=== PATIENT | male | born 1995 | race Caucasian/White ===

== ENCOUNTER 2016-11-18 14:57 | Emergency (ER) | payer BC ==
[~2016-11-18] VITALS: Ht 182.9 cm; Wt 66.0 kg
[2016-11-18 15:00] VITALS: BP 139/90; PULSE 90; RESP 22; TEMP 97.3; O2SAT 99
--- NOTE | 2016-11-18 15:04 | PD ---
Physical Exam Time Seen by Provider: 15:03 Narrative 20 y/o male presents with 2 days of epigastric abdominal pain, nausea and vomiting for 2 days. Vital signs reviewed. Seen at triage desk. Awaiting bed placement. Data Data Last Documented VS Vital Signs Date Time Temp Pulse Resp B/P Pulse Ox O2 Delivery O2 Flow Rate FiO2 11/18/16 15:00 97.3 90 22 139/90 99 MDM Medical Record Reviewed: Yes Supervised Visit with DAMIEN: Riki Iraheta November 18, 2016 15:04
[2016-11-18] MEDS ORDERED: SODIUM CHLOR 0.9% 1000 ML INJ 1,000 ML IV SCH (16:42)
[2016-11-18] MEDS ORDERED: CLOR15TA PO (16:44)
[2016-11-18] MEDS ORDERED: VITA100064 PO (16:44)
[2016-11-18] MEDS ORDERED: ONDANSETRON HCL 4 MG/2 ML VIAL IVP ONE (16:45)
[2016-11-18] MEDS ORDERED: SODIUM CHLORIDE 0.9% FLUSH 10 ML FLUSH IV FLUSH PRN (16:45)
[2016-11-18] MEDS ORDERED: MORPHINE SULFATE 4 MG/ML INJ IV PUSH ONE (16:45)
[2016-11-18 16:50] VITALS: BP 123/65; PULSE 72; RESP 17; O2SAT 100
[2016-11-18 17:07] LABS: AUTOMATED NEUTROPHIL # 3.4 TH/MM3 (1.8-7.7); BASOPHIL % 0.4 % (0.0-2.0); HEMATOCRIT 44.3 % (39.0-51.0); HEMO FLAGS DIFF FINAL; LYMPH % 19.5 % (9.0-44.0); LYMPHOCYTE # 0.9 TH/MM3 (1.0-4.8); MEAN CORPUSCULAR HEMOGLOBIN 31.6 PG (27.0-34.0); MEAN CORPUSCULAR HGB CONC 34.4 % (32.0-36.0); MONO % 8.7 % (0.0-8.0); NEUT % 70.4 % (16.0-70.0); PLATELET COUNT 202 TH/MM3 (150-450); RED BLOOD COUNT 4.82 MIL/MM3 (4.50-5.90); RED CELL DISTRIBUTION WIDTH 14.4 % (11.6-17.2); WHITE BLOOD COUNT 4.8 TH/MM3 (4.0-11.0)
[2016-11-18 17:19] LABS: BLOOD, URINE NEG (NEG); COMMENT (UR) CULT NOT INDICATED; CULTURE IF INDICATED CULT NOT INDICATED; GLUCOSE,URINE NEG (NEG); HYALINE CAST, URINE 1 /lpf (RARE); KETONE, URINE NEG (NEG); MUCUS URINE FEW /lpf (OCC); NITRITE,URINE NEG (NEG); URINE COLOR LIGHT-YELLOW (YELLW/STRAW)
[2016-11-18 17:26] LABS: AMPHETAMINE, URINE NEG (NEG); BARBITURATES, URINE NEG (NEG); COCAINE, URINE NEG (NEG)
[2016-11-18 17:26] LABS: ALT (GPT) 26 U/L (9-52); ANION GAP 8 MEQ/L (5-15); AST (GOT) 31 U/L (15-39); BICARBONATE 27.5 MEQ/L (21.0-32.0); BLOOD UREA NITROGEN 9 MG/DL (7-18); CHLORIDE 104 MEQ/L (98-107); GLOMERULAR FILTRATION RATE 105 ML/MIN (>89); POTASSIUM 4.1 MEQ/L (3.5-5.1); SODIUM (NA) 139 MEQ/L (136-145)
[2016-11-18 17:28] LABS: ALKALINE PHOSPHATASE 72 U/L (45-117); TOTAL BILIRUBIN ADULT 0.5 MG/DL (0.2-1.0)
[2016-11-18 17:34] LABS: PROTHROMBIN TIME - PATIENT 11.4 SEC (9.8-11.6)
[2016-11-18] MEDS ORDERED: IOHEXOL 350 MG/ML 10 ML VIAL (for RAD DIAG) IV ONE (17:52)
[2016-11-18 18:05] VITALS: BP 120/62; PULSE 76; RESP 17; O2SAT 99
[2016-11-18 18:08] VITALS: RESP 17
--- NOTE | 2016-11-18 18:23 | RADRPT ---
EXAM DATE/TIME: 11/18/2016 17:47 [place] COMPARISON: No previous studies available for comparison. INDICATIONS : Abdomen pain. IV CONTRAST: 100 cc Omnipaque 350 (iohexol) IV ORAL CONTRAST: No oral contrast ingested. RADIATION DOSE: 9.96 CTDIvol (mGy) MEDICAL HISTORY : Cardiovascular disease. Gilbert syndrome. SURGICAL HISTORY : None. ENCOUNTER: Initial ACUITY: 1 day PAIN SCALE: 5/10 LOCATION: Bilateral abdomen. TECHNIQUE: Volumetric scanning of the abdomen and pelvis was performed. Using automated exposure control and ad justment of the mA and/or kV according to patient size, radiation dose was kept as low as reasonably achievable to obtain optimal diagnostic quality images. FINDINGS: Lung bases are clear. No acute findings in the liver, spleen, adrenals or pancreas. There is a nonobs tructing approximately 4 mm calculus in the lower pole left kidney. Small cyst upper pole right kidne y. No free fluid. No bowel obstruction. No adenopathy. Mild constipation. There is hypertrophic bony ari nge at the left ischial tuberosity probably from a remote avulsion injury. CONCLUSION: 1. No acute findings within the abdomen and pelvis. Nonobstructing 4 mm calculus lower pole left kidn ey. Remote avulsion injury left ischial tuberosity. Federico Arreola MD on November 18, 2016 at 18:15 Board Certified Radiologist. This report was verified electronically.
--- NOTE | 2016-11-18 18:55 | PD ---
HPI Chief Complaint: Abdominal Pain Time Seen by Provider: 16:35 Travel History International Travel<30 days: No Contact w/Intl Traveler<30days: No Traveled to known affect area: No History of Present Illness HPI 20-year-old male with history of Gilbert syndrome presents to the ED for evaluation of 2 day history of 10/10 epigastric pain, nausea and vomiting. Patient denies fever, chills, changes in bowel habits, back pain, dysuria. He states that he is prescribed an antianxiety medication but has run out and so has been drinking heavily for the past few days. He endorses anorexia secondary to pain. He is unable to estimate the number of episodes of NBNB vomiting. PFSH Past Medical History Anxiety: Yes Depression: Yes Cardiovascular Problems: Yes Diminished Hearing: No Medical other: Yes (Gilbert Syndrome ) Seizures: Yes Tetanus Vaccination: Unknown Influenza Vaccination: No ?: Not Social History Alcohol Use: Yes (daily ) Tobacco Use: No Substance Use: Yes (marijuana) Allergies-Medications (Allergen,Severity, Reaction): Uncoded Allergies: ANTIDEPRESSANTS (Allergy, Severe, 11/18/16) "BAD REACTION" Reported Meds & Prescriptions Reported Meds & Active Scripts Active Zofran Odt (Ondansetron Odt) 4 Mg Tab 4 Mg SL Q8HR PRN Reported Clorazepate (Clorazepate Dipotassium) 15 Mg Tab 15 Mg PO DAILY PRN Vitamin D (Cholecalciferol) 1,000 Unit Tab 1,000 Units PO DAILY Review of Systems Except as stated in HPI: all other systems reviewed are Neg Physical Exam Narrative GENERAL: Well-nourished, well-developed thin white male in no acute distress.. SKIN: Focused skin assessment warm/dry. HEAD: Normocephalic. EYES: No scleral icterus. No injection or drainage. NECK: Supple, trachea midline. No JVD or lymphadenopathy. CARDIOVASCULAR: Regular rate and rhythm without murmurs, gallops, or rubs. 2+ DP and radial pulses bilaterally. RESPIRATORY: Breath sounds clear and equal bilaterally. No accessory muscle use. GASTROINTESTINAL: Abdomen soft, nondistended. Tender to palpation in the bilateral upper quadrants and epigastric area. MUSCULOSKELETAL: No cyanosis, or edema. Patient is ambulatory and moves extremities spontaneously. BACK: Nontender without obvious deformity. No CVA tenderness. Data Data Last Documented VS Vital Signs Date Time Temp Pulse Resp B/P Pulse Ox O2 Delivery O2 Flow Rate FiO2 11/18/16 18:08 17 11/18/16 18:05 76 120/62 99 11/18/16 16:50 Room Air 11/18/16 15:00 97.3 Orders Complete Blood Count With Diff (11/18/16 16:42) Comprehensive Metabolic Panel (11/18/16 16:42) Lipase (11/18/16 16:42) Lactic Acid (11/18/16 16:42) Prothrombin Time / Inr (Pt) (11/18/16 16:42) Act Partial Throm Time (Ptt) (11/18/16 16:42) Urinalysis - C+S If Indicated (11/18/16 16:42) Ct Abd/Pel W Iv Contrast(Rout) (11/18/16 16:42) Iv Access Insert/Monitor (11/18/16 16:42) Ecg Monitoring (11/18/16 16:42) Oximetry (11/18/16 16:42) NPO (11/18/16 16:42) Morphine Inj (Morphine Inj) (11/18/16 16:45) Ondansetron Inj (Zofran Inj) (11/18/16 16:45) Sodium Chlor 0.9% 1000 Ml Inj (Ns 1000 M (11/18/16 16:42) Sodium Chloride 0.9% Flush (Ns Flush) (11/18/16 16:45) Electrocardiogram (11/18/16 16:42) Drug Screen, Random Urine (11/18/16 16:42) Alcohol (Ethanol) (11/18/16 16:42) Iohexol 350 Inj (Omnipaque 350 Inj) (11/18/16 17:52) Labs Laboratory Tests Test 11/18/16 11/18/16 16:56 16:57 White Blood Count 4.8 TH/MM3 Red Blood Count 4.82 MIL/MM3 Hemoglobin 15.2 GM/DL Hematocrit 44.3 % Mean Corpuscular Volume 92.0 FL Mean Corpuscular Hemoglobin 31.6 PG Mean Corpuscular Hemoglobin 34.4 % Concent Red Cell Distribution Width 14.4 % Platelet Count 202 TH/MM3 Mean Platelet Volume 7.5 FL Neutrophils (%) (Auto) 70.4 % Lymphocytes (%) (Auto) 19.5 % Monocytes (%) (Auto) 8.7 % Eosinophils (%) (Auto) 1.0 % Basophils (%) (Auto) 0.4 % Neutrophils # (Auto) 3.4 TH/MM3 Lymphocytes # (Auto) 0.9 TH/MM3 Monocytes # (Auto) 0.4 TH/MM3 Eosinophils # (Auto) 0.0 TH/MM3 Basophils # (Auto) 0.0 TH/MM3 CBC Comment DIFF FINAL Differential Comment Prothrombin Time 11.4 SEC Prothromb Time International 1.0 RATIO Ratio Activated Partial 27.0 SEC Thromboplast Time Sodium Level 139 MEQ/L Potassium Level 4.1 MEQ/L Chloride Level 104 MEQ/L Carbon Dioxide Level 27.5 MEQ/L Anion Gap 8 MEQ/L Blood Urea Nitrogen 9 MG/DL Creatinine 0.93 MG/DL Estimat Glomerular Filtration 105 ML/MIN Rate Random Glucose 75 MG/DL Calcium Level 9.7 MG/DL Total Bilirubin 0.5 MG/DL Aspartate Amino Transf 31 U/L (AST/SGOT) Alanine Aminotransferase 26 U/L (ALT/SGPT) Alkaline Phosphatase 72 U/L Total Protein 8.2 GM/DL Albumin 4.6 GM/DL Lipase 115 U/L Ethyl Alcohol Level 6 MG/DL Urine Color LIGHT-YELLOW Urine Turbidity CLEAR Urine pH 7.0 Urine Specific [place] 1.010 Urine Protein NEG mg/dL Urine Glucose (UA) NEG mg/dL Urine Ketones NEG mg/dL Urine Occult Blood NEG Urine Nitrite NEG Urine Bilirubin NEG Urine Urobilinogen LESS THAN 2.0 MG/DL Urine Leukocyte Esterase NEG Urine RBC 1 /hpf Urine WBC 1 /hpf Urine Hyaline Casts 1 /lpf Urine Mucus FEW /lpf Microscopic Urinalysis Comment CULT NOT INDICATED Lactic Acid Level 1.4 mmol/L Urine Opiates Screen NEG Urine Barbiturates Screen NEG Urine Amphetamines Screen NEG Urine Benzodiazepines Screen POS Urine Cocaine Screen NEG Urine Cannabinoids Screen POS MDM Medical Decision Making Medical Screen Exam Complete: Yes Emergency Medical Condition: Yes Differential Diagnosis Pancreatitis versus gastritis versus cholecystitis versus alcohol withdrawal versus other Narrative Course 20-year-old male with history of Gilbert syndrome presents to the ED for evaluation of 2 day history of 10/10 epigastric pain, nausea and vomiting. Patient denies fever, chills, changes in bowel habits, back pain, dysuria. He states that he is prescribed an antianxiety medication but has run out and so has been drinking heavily for the past few days. Last drink this morning. He endorses anorexia secondary to pain. He is unable to estimate the number of episodes of NBNB vomiting. I was reviewed. Physical exam reveals a thin white male in no acute distress. There is tenderness to palpation of the bilateral upper abdominal quadrants for the physical exam is otherwise unremarkable. IV was established. Patient was placed on continuous monitoring. He was administered a liter of normal saline, 4 mg morphine and 4 mg Zofran IV. CBC: WBC 4.8, hemoglobin 15.2. Coag: INR 1.0. CMP: Unremarkable. Lactic acid: 1.4. Lipase: 1:15. UA: No culture indicated. Tox screen: Positive for benzodiazepines and cannabinoids. Alcohol: Less than 6. CT: No acute findings of the abdomen or pelvis Nonobstructing 4 mm calculus in the lower pole of the left kidney. Remote avulsion injury to the left ischial tuberosity per radiology read. EKG: Rate 61, sinus rhythm.KS interval 145, QRS 95, QTc 388. Normal axis. No ST changes. Reviewed by Dr. Poole The patient is actually taking clorazepate which is to treat alcohol withdrawal. He has completed the prescription that was provided to him. I discussed the results of the workup with the patient. I suspect that his pain is secondary to his multiple episodes of vomiting which I believe is likely due to his heavy alcohol use. Vitals are all within normal limits and no evidence of withdrawal in the ED. He was provided with a prescription for a few doses of Zofran. He is instructed to follow-up with his primary care provider and [facility] for outpatient treatment of his alcohol misuse. We discussed reasons to return to the ED. He indicated understanding of instructions and is agreeable to the care plan. He is stable and discharged home. Diagnosis Primary Impression: Alcohol abuse Additional Impressions: Abdominal pain Qualified Code: R10.10 - Pain of upper abdomen Nausea and vomiting Qualified Code: R11.2 - Non-intractable vomiting with nausea, unspecified vomiting type Referrals: [facility] (Out patient) Primary Care Physician Patient Instructions: Abdominal Pain (ED), Acute Nausea and Vomiting (ED), Diet for Ulcers and Gastritis (ED), General Instructions Additional Instructions: Rest, hydrate. Take Zofran as prescribed for continued nausea and vomiting. Follow-up with your primary care provider for further evaluation. Seek outpatient treatment for your alcohol misuse from [facility]. Return to the ED for worsening of symptoms or any urgent or emergent medical condition. Med/Other Pt SpecificInfo: Prescription(s) given Scripts Ondansetron Odt (Zofran Odt)4 Mg Tab4 Mg SL Q8HR PRN (Nausea/Vomiting) #7 TAB Ref 0 Prov:Alina Poole MD 11/18/16 Disposition: 01 DISCHARGE HOME Condition: Stable Yee Jaime November 18, 2016 18:55
[2016-11-18] MEDS ORDERED: ZOFR4TAB3 SL (18:56)
--- NOTE | 2016-11-19 10:57 | EKG ---
Date Performed: 11/18/2016 Time Performed: 17:35:28 PTAGE: 20 years EKG: Sinus rhythm WITH SINUS ARRHYTHMIA BORDERLINE RIGHT AXIS DEVIATION BORDERLINE ECG NO PREVIOUS TRACING DOCTOR: Justin Cavazos Interpretating Date/Time 11/19/2016 10:55:56
== END 2016-11-18 19:22 | disposition home or self-care (01) ==
LOC: NEPD 14:57
DX: F10.10 Alcohol abuse, uncomplicated (principal); R10.13 Epigastric pain; R11.2 Nausea with vomiting, unspecified; Y90.0 Blood alcohol level of less than 20 mg/100 ml
CPT/HCPCS: 74177; 80053; 80307; 81001; 83605; 83690; 85025; 85610; 85730; 93005; 96361; 96374; 96375; 99284; J2270; J2405; J7030; Q9967